=== PATIENT | female | born 1975 ===

== ENCOUNTER → 2017-04-11 17:20 | Observation (INO) ==
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
== END | disposition home or self-care (01) ==
LOC: 1NENULAB
PROVIDERS: ADMIT Obstetrics & Gynecology; ATTEND Obstetrics & Gynecology